=== PATIENT | female | born 1970 | race Caucasian/White ===

== ENCOUNTER → 2016-04-06 | Outpatient (CLI) | payer BC ==
--- NOTE | 2016-04-07 07:41 | XR ---
EXAMINATION TYPE: XR abdomen 1V DATE OF EXAM: 04/06/2016 9:24 AM COMPARISON: NONE HISTORY: Pain TECHNIQUE: Single supine KUB image of the abdomen is obtained FINDINGS: Small bowel demonstrates no evidence for dilatation or air fluid levels. Gas and fecal material is seen in non-distended colon. No convincing evidence for pneumoperitoneum. No unusual calcifications. The lung bases are clear. The osseous structures are intact. IMPRESSION: 1. Overall nonobstructive bowel gas pattern.
== END | disposition home or self-care (01) ==
LOC: RADXRYALE 09:14
PROVIDERS: ATTEND Family Medicine
DX: R10.84 Generalized abdominal pain (principal)
CPT/HCPCS: 74000

== ENCOUNTER → 2016-10-14 | Outpatient (CLI) | payer BC ==
--- NOTE | 2016-10-14 08:38 | US ---
EXAMINATION TYPE: US abdomen complete DATE OF EXAM: 10/14/2016 COMPARISON: NONE CLINICAL HISTORY: 46-year-old female Diarrhea R19.7, R10.13 Epigastric abdominal pain; symptoms radi ating to back and noted especially after fatty foods. 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 TECHNIQUE: Multiple sonographic images of the abdomen are obtained. FINDINGS: Liver Length: 17.3 cm Gallbladder Wall: 0.2 cm CBD: 0.4 cm Spleen: 12.3 cm Right Kidney: 9.5 x 5.0 x 4.5 cm Left Kidney: 10.2 x 4.9 x 5.1 cm Pancreas: wnl Liver: wnl Gallbladder: wnl Evidence for sonographic Guevara's sign: No CBD: wnl Spleen: wnl Right Kidney: wnl Left Kidney: wnl Upper IVC: wnl Abd Aorta: The upper abdominal aorta measures 2.9 cm in transverse images. IMPRESSION: Ectasia of the upper abdominal aorta at 2.9 cm. The liver is also borderline enlarged. Otherwise, unr emarkable sonographic examination of the abdomen.
== END | disposition home or self-care (01) ==
LOC: RADUSWWP 06:56
PROVIDERS: ATTEND Family Medicine
DX: I77.811 Abdominal aortic ectasia (principal); R10.13 Epigastric pain; R19.7 Diarrhea, unspecified
CPT/HCPCS: 76700

== ENCOUNTER → 2018-05-11 | Outpatient (CLI) | payer BC ==
--- NOTE | 2018-05-11 08:49 | US ---
EXAMINATION TYPE: US abdomen limited DATE OF EXAM: 05/11/2018 COMPARISON: 10/14/2016 CLINICAL HISTORY: Rt Upper Quad Abd Tenderness R10.811. Abdominal pain, diarrhea EXAM MEASUREMENTS: Liver Length: 18.6 cm Gallbladder Wall: 0.3 cm CBD: 0.4 cm Right Kidney: 9.8 x 4.2 x 4.6 cm Pancreas: Obscured by bowel gas Liver: Homogeneous and unremarkable. Upper limits of normal in size. Gallbladder: no evidence of stones, gallbladder wall thickening or pericholecystic fluid. Evidence for sonographic Guevara's sign: no CBD: appears wnl Right Kidney: no evidence of hydronephrosis IMPRESSION: 1. No sonographic evidence of cholelithiasis or acute cholecystitis. In this patient with right upper quadrant tenderness HIDA scan with CCK could evaluate for biliary dyskinesia or chronic cholecystiti s. 2. Obscuration of the pancreas by overlying bowel gas.
== END | disposition home or self-care (01) ==
LOC: RADUSWWP 07:49
PROVIDERS: ATTEND Family Medicine
DX: R14.3 Flatulence (principal); R10.811 Right upper quadrant abdominal tenderness
CPT/HCPCS: 76705

== ENCOUNTER → 2018-05-26 | Outpatient (CLI) | payer BC ==
--- NOTE | 2018-05-26 11:00 | NM ---
Nuclear medicine hepatobiliary scan. HISTORY: Pain. DOSAGE: The patient received 8 ounces and sure plus and 4.8 mCi of Technetium 99m Choletec. FINDINGS: There is normal hepatic extraction. The gallbladder is seen by 15 minutes. There is bilia ry to bowel clearance by 25 minutes. Ejection fraction is 94%. IMPRESSION: 1. Ejection fraction of 94% can occasionally be seen with hyperdynamic gallbladder. Correlate clinica lly.
== END | disposition home or self-care (01) ==
LOC: RADNMMAIN 08:52
PROVIDERS: ATTEND Family Medicine
DX: R10.811 Right upper quadrant abdominal tenderness (principal)
CPT/HCPCS: 78226; A9537

== ENCOUNTER → 2019-08-13 | Outpatient (CLI) | payer BC ==
--- NOTE | 2019-08-13 16:47 | XR ---
EXAMINATION TYPE: XR thoracic spine 2V DATE OF EXAM: 08/13/2019 CLINICAL HISTORY: pain TECHNIQUE: Frontal, lateral, and swimmer's view of thoracic spine are obtained. COMPARISON: None. FINDINGS: Thoracic spine show satisfactory alignment without evidence of acute fracture or dislocatio n. Vertebral body heights are preserved. Disc spaces are well preserved. Visualized ribs are unrem arkable. IMPRESSION: No acute fracture or dislocation is seen in the thoracic spine. ICD 10 NO FRACTURE, INIT IAL EVALUATION
--- NOTE | 2019-08-13 16:49 | XR ---
EXAMINATION TYPE: XR abdomen 1V DATE OF EXAM: 08/13/2019 COMPARISON: 04/06/2016 HISTORY: Pain TECHNIQUE: Single supine KUB image of the abdomen is obtained FINDINGS: Small bowel demonstrates no evidence for dilatation or air fluid levels. Gas and fecal material is seen in non-distended colon. No convincing evidence for pneumoperitoneum. Ventriculoperitoneal shunt unchanged in position. Mild f ecal stasis. No unusual calcifications. The lung bases are clear. The osseous structures are intact. IMPRESSION: 1. Overall nonobstructive bowel gas pattern.
== END | disposition home or self-care (01) ==
LOC: RADXRYALE 15:57
PROVIDERS: ATTEND Family Medicine
DX: M54.6 Pain in thoracic spine (principal); R31.9 Hematuria, unspecified
CPT/HCPCS: 72070; 74018

== ENCOUNTER → 2019-08-27 | Outpatient (CLI) | payer BC ==
--- NOTE | 2019-08-27 14:41 | XR ---
Cervical spine HISTORY: Neck pain, cerebrospinal fluid leak 5 views of the cervical spine Minimal anterolisthesis grade 1 noted at C2-3. Relative straightening the cervical spine may be due t o muscle spasm. Cervical vertebral bodies show preserved height and bone mineralization. Disc spaces are remarkable for disc height loss at C3-4. No evident foraminal encroachment. Possible posterior mi dline fusion anomaly at C1. The patient's ventriculoperitoneal shunt tubing in the right neck is discontinuous noted best on the oblique and frontal views. IMPRESSION: Fracture patient's shunt tubing at the level of approximatelyC6, C7 the neck.
== END | disposition home or self-care (01) ==
LOC: RADXRYALE 14:12
PROVIDERS: ATTEND Family Medicine
DX: Z98.2 Presence of cerebrospinal fluid drainage device (principal)
CPT/HCPCS: 72050

== ENCOUNTER → 2019-09-23 | Outpatient (CLI) | payer BC ==
--- NOTE | 2019-09-23 09:15 | XR ---
EXAMINATION TYPE: XR lumbosacral spine min 4V DATE OF EXAM: 09/23/2019 CLINICAL HISTORY: Low back pain. TECHNIQUE: Frontal, lateral, and oblique images of the lumbar spine are obtained. COMPARISON: Abdominal x-ray August 13, 2019 FINDINGS: There are 5 lumbar type vertebral bodies identified. The lumbar spine redemonstrates dext roconvex scoliosis centered at L3 level without evidence of acute fracture or dislocation. Vertebral body heights are within normal limits. Moderate disc space narrowing with left-sided spurring L4-L5 level. Mild disc space narrowing and anterior spurring L5-S1 level. The oblique images appear within normal limits. There is overlying catheter presumed [employer] shunt catheter terminating in left upper pelvi s, tip position change from abdominal x-ray August 13, 2019. IMPRESSION: As above.
== END | disposition home or self-care (01) ==
LOC: RADXRYALE 08:49
PROVIDERS: ATTEND Physician Assistant Medical
DX: M41.86 Other forms of scoliosis, lumbar region (principal); M99.73 Connective tissue and disc stenosis of intervertebral foramina of lumbar region
CPT/HCPCS: 72110